=== PATIENT | male | born 1980 | race Caucasian/White ===

== ENCOUNTER 2018-05-02 21:27 | Emergency (ER) | payer OTHER ==
[~2018-05-02] VITALS: Ht 188 cm; Wt 108.9 kg
[2018-05-02 22:08] LABS: URINE BILIRUBIN NEGATIVE (Negative); URINE BLOOD NEGATIVE (Negative); URINE CLARITY CLEAR; URINE COLOR YELLOW; URINE GLUCOSE-RANDOM NEGATIVE (Negative); URINE KETONES NEGATIVE (Negative); URINE LEUKOCYTES NEGATIVE (Negative); URINE NITRITE NEGATIVE (Negative); URINE PROTEIN NEGATIVE (Negative); URINE SPECIFIC GRAVITY <= 1.005 (1.005-1.030); URINE UROBILINOGEN 0.2 E.U./dl (0.2-1.0)
[2018-05-02 22:16] LABS: AMP/METHAMP Negative (Negative); BARBITURATES Negative (Negative); BENZODIAZEPINES Negative (Negative); COCAINE Negative (Negative); METHADONE Negative (Negative); OPIATES Negative (Negative); PCP Negative (Negative); THC POSITIVE (Negative)
[2018-05-02 22:31] LABS: HEMOGLOBIN 15.1 gm/dL (14.0-18.0); MCH 34.5 pg (26.0-34.0); MCHC 34.2 g/dL (28.0-37.0); MCV 100.6 fL (80.0-100.0); MPV 7.1 fl. (7.2-11.1); RBC 4.37 mil/uL (4.50-6.00); RDW-CV 13.4 % (10.5-14.5); WBC 6.4 thou/uL (4.0-11.0)
[2018-05-02 22:36] LABS: CALCIUM 8.5 mg/dL (8.5-10.1); CREATININE 0.9 mg/dL (0.6-1.3); POTASSIUM 3.9 mmol/L (3.5-5.1)
[2018-05-02 22:41] LABS: ALBUMIN 4.4 g/dL (3.4-5.0); TOTAL BILIRUBIN 0.2 mg/dL (<0.1-1.0); TOTAL PROTEIN 8.5 g/dL (6.4-8.2)
[2018-05-02 22:45] LABS: ALCOHOL 387 mg/dL (<10)
[2018-05-02 22:51] LABS: ACETAMINOPHEN < 2 ug/mL (10-30)
[2018-05-04 01:25] VITALS: BP 158/86
== END 2018-05-04 01:25 ==
LOC: M.ERS 21:27
PROVIDERS: Personal Emergency Response Attendant
DX: R45.851 Suicidal ideations (principal)